=== PATIENT | female | born 1990 | race Caucasian/White ===

== ENCOUNTER 2017-12-15 11:19 | Emergency (ER) | payer SELFPAY ==
[~2017-12-15] VITALS: Ht 160 cm; Wt 59.0 kg
[2017-12-15 12:33] LABS: APPEARANCE CLOUDY ((CLEAR)); BILIRUBIN NEGATIVE; BLOOD LARGE; COLOR AMBER ((YELLOW)); GLUCOSE (STRIP) NEGATIVE; KETONES NEGATIVE; LEUKOCYTES NEGATIVE; NITRITE NEGATIVE; PROTEIN (STRIP) 100; SPECIFIC GRAVITY 1.021 (1.000-1.030); UROBILINOGEN 0.2 MG/DL (0.2-1.0)
[2017-12-15 12:40] LABS: BACTERIA NONE SEEN /HPF; EPITHELIAL CELLS RARE /HPF; MUCUS 1+ /LPF; RED BLOOD CELLS TNTC /HPF (0-5); UCUL ADDED? YES; WHITE BLOOD CELLS 0-5 /HPF (0-5)
[2017-12-15 12:43] LABS: HEMATOCRIT 43.2 % (36.0-46.0); HEMOGLOBIN 15.2 G/DL (11.9-15.5); MCH 31.7 PG (29.0-34.0); MCHC 35.2 G/DL (30.0-36.0); MCV 90.2 FL (83-99); PLATELET COUNT 285 K/uL (156-360); RBC DIS.WIDTH-CV 11.9 % (11.8-14.6); RBC DIS.WIDTH-SD 39.7 % (39-53); RED BLOOD COUNT 4.79 M/uL (3.80-5.20); WHITE BLOOD COUNT 12.2 K/uL (4.1-10.2)
[2017-12-15 12:51] LABS: ALBUMIN 4.5 g/dL (3.2-4.8); CHLORIDE 109 mEq/L (99-109); POTASSIUM 4.5 mEq/L (3.7-5.4); SODIUM 137 mEq/L (136-147)
[2017-12-15 12:54] LABS: GLUCOSE 115 mg/dL (70-99); TOTAL PROTEIN 7.6 g/dL (6.4-8.3)
[2017-12-15 12:56] LABS: TOTAL BILIRUBIN 0.5 mg/dL (0.0-1.0)
[2017-12-15 12:57] LABS: ALKALINE PHOSPHATASE 72 IU/L (3-129); CREATININE 0.9 mg/dL (0.6-1.3)
[2017-12-15 12:58] LABS: GFR ESTIMATE (CALCULATED) > 59 mL/min/; UREA NITROGEN (BUN) 12 mg/dL (9-23)
[2017-12-15 12:59] LABS: AST (GOT) 26 IU/L (2-34)
[2017-12-15 13:00] LABS: ALT (GPT) 24 IU/L (3-49)
[2017-12-15 13:08] LABS: QUANTITATIVE HCG < 4.0 MIU/ML
[2017-12-15] MEDS ORDERED: MOTRIN600 MG PO (13:49)
[2017-12-15 13:57] VITALS: BP 145/78
== END 2017-12-15 13:58 | disposition home or self-care (01) ==
LOC: EME 11:19
DX: N23 Unspecified renal colic (principal)
CPT/HCPCS: 80053; 81003; 84702; 85027; 87086; 99281; 99284